=== PATIENT | female | born 1995 ===

== ENCOUNTER 2022-04-05 12:28 | Emergency (ER) | payer MEDICAID, OTHER ==
[2022-04-05 14:19] LABS: CORONAVIRUS COVID-19 NAA NEGATIVE (NEGATIVE); INFLUENZA A NAA NEGATIVE (NEGATIVE); INFLUENZA B NAA NEGATIVE (NEGATIVE); RESPIRATORY SYNCYTIAL VIR NAA NEGATIVE (NEGATIVE)
[2022-04-05] MEDS ORDERED: Azithromycin 250 MG Tab PO ONE (14:50)
== END 2022-04-05 15:51 | disposition home or self-care (01) ==
LOC: MW.ED 12:28
DX: J40 Bronchitis, not specified as acute or chronic (principal); Z20.822 Contact with and (suspected) exposure to COVID-19
CPT/HCPCS: 0241U; 71046; 99283; A9270

== ENCOUNTER 2022-04-15 02:04 | Emergency (ER) | payer MEDICAID, OTHER ==
[2022-04-15] MEDS ORDERED: Ketorolac 30 MG/ML SDV IM STA (04:30)
[2022-04-15 04:48] LABS: CORONAVIRUS COVID-19 NAA NEGATIVE (NEGATIVE); INFLUENZA A NAA NEGATIVE (NEGATIVE); INFLUENZA B NAA NEGATIVE (NEGATIVE); RESPIRATORY SYNCYTIAL VIR NAA NEGATIVE (NEGATIVE)
[2022-04-15] MEDS ORDERED: Dexamethasone 10 MG/ML SDV IM STA (04:50)
[2022-04-15] MEDS ORDERED: Amoxicillin/Clavulanate K 875-125 MG Tab PO ONE (06:00)
== END 2022-04-15 06:09 | disposition home or self-care (01) ==
LOC: MW.ED 02:04
DX: J30.9 Allergic rhinitis, unspecified (principal); B96.89 Other specified bacterial agents as the cause of diseases classified elsewhere; Z20.822 Contact with and (suspected) exposure to COVID-19
CPT/HCPCS: 0241U; 71045; 96372; 99283; A9270; J1100; J1885